=== PATIENT | female | born 1990 | race Caucasian/White ===

== ENCOUNTER 2021-08-26 14:29 | Emergency (ER) | payer BC, SELFPAY ==
[2021-08-26 14:36] VITALS: BP 150/86; PULSE 88; RESP 16; TEMP 36.8; O2SAT 98
--- NOTE | 2021-08-26 14:57 | ED.EAR ---
HPI - Ear Problem General Chief complaint: Ear Stated complaint: right ear pain Time Seen by Provider: 08/26/21 14:58 Source: patient Mode of arrival: ambulatory Limitations: no limitations History of Present Illness HPI Narrative: 31-year-old female presented for complaint of right ear pain, onset 1100 today. She states the pain is aching and constant, throbbing. She took Tylenol about 4 hours ago. She denies associated dizziness, tinnitus, nausea, vomiting, fevers or chills. No injury to the ear, states she was sitting in hinduism. Denies sinus congestion, pressure, cough, or recent illness. MD Complaint: ear pain Related Data Home Medications Medication Instructions Recorded Confirmed escitalopram oxalate [Lexapro] 20 mg PO DAILY 08/26/21 08/26/21 sertraline [Zoloft] 50 mg PO DAILY 08/26/21 08/26/21 Allergies Allergy/AdvReac Type Severity Reaction Status Date / Time ceftriaxone [From Rocephin] Allergy Hives Verified 08/26/21 14:59 Penicillins Allergy Hives Verified 08/26/21 14:59 Review of Systems Review of Systems: CONSTITUTIONAL: Denies malaise, chills, or fever. EYES: Denies visual changes, redness, or discharge. ENT: Denies rhinorrhea, congestion, sinus pain, and sore throat. Reports ear pain CARDIOVASCULAR: Denies chest pain, palpitations, or edema. RESPIRATORY: Denies cough or dyspnea. GASTROINTESTINAL: Denies abdominal pain, nausea, vomiting, diarrhea SKIN: Denies rash or itching. MUSCULOSKELETAL: Denies myalgia. NEUROLOGIC: Denies headache. All systems reviewed & are unremarkable except as noted in HPI and below [facility]LY [facility], [facility] Comments At time of signature, agree with nursing past medical, surgical, social and family history. There is no relevant family history pertinent to the presenting complaint Exam Narrative: GENERAL: Ill-appearing, appears in pain, no acute distress. HEAD: Normocephalic EYES: conjunctivae clear ENT: Nares clear. Mucous membranes moist. Right canal erythematous, TM erythematous with purulent drainage, tragal tenderness noted. left TM pearly powell with normal light reflex. Oropharynx not erythematous without lesions. no drooling, no hoarseness, no trismus, uvula midline. NECK: Supple. right anterior cervical lymphadenopathy CHEST: Clear to auscultation, breath sounds equal. No wheezing, rhonchi, rales, or stridor. No respiratory distress, speaks in full sentences. HEART: Regular rate and rhythm. No murmur heard. SKIN: Warm, dry, no rash. NEURO: Alert and oriented x3. PSYCH: Normal mood and affect Course Course Emergency Course: Patient is aware of diagnosis, understands and agrees to treatment plan. Anticipatory guidance given. Patient agrees to follow-up as directed and is aware of reasons to seek care at the emergency department. Portions of this record may have been created with voice recognition software Level of Care: Express Care Visit Vital Signs Vital signs: Vital Signs Temperature 98.2 F 08/26/21 14:36 Pulse Rate 88 08/26/21 14:36 Respiratory Rate 16 08/26/21 14:36 Blood Pressure 150/86 H 08/26/21 14:36 Pulse Oximetry 98 08/26/21 14:36 Temperature 98.2 F 08/26/21 14:36 Pulse Rate 88 08/26/21 14:36 Respiratory Rate 16 08/26/21 14:36 Blood Pressure 150/86 H 08/26/21 14:36 Pulse Oximetry 98 08/26/21 14:36 Reviewed Medical Decision Making MDM Narrative Medical decision making narrative: PCN and rocephin allergy, Rx doxy given for 10 days given the appearance of the right ear c/w severe infection. Patient is appropriate for outpatient treatment and follow-up. Differential Diagnosis Differential Diagnosis: Coronavirus, strep pharyngitis, allergic rhinitis, upper respiratory tract infection, sinusitis, rhinosinusitis, nasopharyngitis, viral pharyngitis, otitis media, otitis externa, eustachian tube dysfunction, foreign body, cerumen impaction. Vital Signs Vital Signs: Vital Signs Temperature 98.2 F 08/26/21 14:36 Pulse Rate 88
[2021-08-26 15:00] VITALS: BP 150/86; PULSE 88; RESP 16; TEMP 36.8; O2SAT 98
== END 2021-08-26 15:08 | disposition home or self-care (01) ==
PROVIDERS: Emergency Provider Nurse Practitioner Family; PCP Internal Medicine
DX: H66.001 Acute suppurative otitis media without spontaneous rupture of ear drum, right ear (principal)
CPT/HCPCS: 99213; G0463

== ENCOUNTER 2022-02-19 10:41 | Emergency (ER) | payer BC, SELFPAY ==
--- NOTE | 2022-02-19 10:44 | ED.URI ---
HPI - URI/Sore Throat General Chief Complaint: Upper Respiratory Infection Stated Complaint: left eye and sore throat Time Seen by Provider: 02/19/22 10:44 Source: patient and RN notes reviewed History of Present Illness HPI Narrative: patient is a 32-year-old female who presents to the Urgent Care with complaints of left eye redness and drainage. Patient states that she woke up with it this morning. Patient states she has also been having a sore throat for the last couple days. Patient denies of any fever, nausea or vomiting. Patient has not been anything [id number] for her symptoms. No other acute complaints. No acute distress noted. Patient aware of the plan of care. Some parts of this dictation were generated by voice recognition software and may contain typographical and/or grammatical inaccuracies. Related Data Home Medications Medication Instructions Recorded Confirmed No Home Medications 02/19/22 02/19/22 Allergies Allergy/AdvReac Type Severity Reaction Status Date / Time ceftriaxone [From Rocephin] Allergy Hives Verified 02/19/22 10:54 Penicillins Allergy Hives Verified 02/19/22 10:54 Review of Systems Review of Systems: CONSTITUTIONAL: Denies fever, chills, or sweats. EYES: reports the redness, discharge and itchiness to the left eye ENT: Denies rhinorrhea, congestion, Otalgia. Reports of sore throat CARDIOVASCULAR: Denies chest pain, palpitations, or edema. RESPIRATORY: Denies cough or dyspnea. GASTROINTESTINAL: Denies abdominal pain, nausea, vomiting, or diarrhea. GENITOURINARY: Denies dysuria or hematuria. SKIN: Denies rash or itching. MUSCULOSKELETAL: Denies back pain, joint pain, or myalgia. NEUROLOGIC: Denies headache, numbness, or weakness. All other systems reviewed are negative, except as documented in HPI. Exam Narrative: GENERAL: This is a well-nourished, well-developed patient, in no apparent distress. HEAD: normocephalic, atraumatic. EYES: PERRL. Sclera clear/white. Vision is grossly intact. External hordeolum to the left lower eyelid with mild erythema. Mildly injected left sclera/ conjunctiva. Notable matting to the left eye. EARS: External ears normal, auditory canals clear and without drainage, TMs normal without perforation. Hearing grossly intact. NOSE: External nose normal with no obvious nasal discharge, nares without redness, no rhinorrhea. THROAT: Mucous membranes moist, posterior pharynx clear. moderate postnasal drainage. NECK: Neck supple, non-tender without lymphadenopathy, masses or thyromegaly. CARDIOVASCULAR: Regular rate and rhythm without murmurs, gallops, or rubs. RESPIRATORY: Clear to auscultation. Breath sounds equal bilaterally. No wheezes, rales, or rhonchi. SKIN: warm, intact with no suspicious lesions or rash, good texture and turgor. NEURO: awake, alert, and oriented to person, place and time. There were no obvious focal neurologic abnormalities. EXTREMITIES: No clubbing, cyanosis, or edema. Course Course Level of Care: Express Care Visit Vital Signs Vital signs: Vital Signs Temperature 97.9 F 02/19/22 10:47 Pulse Rate 93 02/19/22 10:47 Respiratory Rate 20 02/19/22 10:47 Blood Pressure 140/86 02/19/22 10:47 Pulse Oximetry 99 02/19/22 10:47 Oxygen Delivery Room Air 02/19/22 10:47 Temperature 97.9 F 02/19/22 10:47 Pulse Rate 93 02/19/22 10:47 Respiratory Rate 20 02/19/22 10:47 Blood Pressure 140/86 02/19/22 10:47 Pulse Oximetry 99 02/19/22 10:47 Oxygen Delivery Room Air 02/19/22 10:47 Reviewed MDM - URI/Sore Throat MDM Narrative Medical decision making narrative: Reviewed lab results with the patient. She is aware that her strep swab was negative. Educated patient on culture and we will call within 72 hours if culture is positive, and antibiotics are necessary. Advised patient to continue the warm compress to the left eye and use the eyedrops as directed,wipe the applicator tip after each a
[2022-02-19 10:47] VITALS: BP 140/86; PULSE 93; RESP 20; TEMP 36.6; O2SAT 99
== END 2022-02-19 11:45 | disposition home or self-care (01) ==
PROVIDERS: Emergency Provider Nurse Practitioner Family
DX: H10.32 Unspecified acute conjunctivitis, left eye (principal); H00.015 Hordeolum externum left lower eyelid
CPT/HCPCS: 87081; 87880; 99213; G0463

== ENCOUNTER 2022-08-19 12:30 | Emergency (ER) | payer BC, SELFPAY ==
[2022-08-19 12:40] VITALS: BP 167/111; PULSE 99; RESP 20; TEMP 36.6; O2SAT 98
--- NOTE | 2022-08-19 12:48 | ED.SKABFB ---
HPI - Skin/Abscess/Foreign Bdy General Chief complaint: Skin/Abscess/Foreign Body Stated complaint: Rash Time Seen by Provider: 08/19/22 12:48 Source: patient and RN notes reviewed History of Present Illness HPI narrative: Patient is a 32-year-old female who presents to urgent care with complaints of an itchy rash to the right shoulder, bilateral arms, lower/upper back, groin. Patient states it started yesterday and she has been outside assuming it may be poison edith. Patient has not taken anything [id number] for her symptoms. No other acute complaints. No acute distress noted. Patient aware of the plan of care. Some parts of this dictation were generated by voice recognition software and may contain typographical and/or grammatical inaccuracies. Related Data Allergies Allergy/AdvReac Type Severity Reaction Status Date / Time ceftriaxone [From Rocephin] Allergy Hives Verified 02/19/22 10:54 Penicillins Allergy Hives Verified 02/19/22 10:54 Review of Systems Review of Systems: CONSTITUTIONAL: Denies fever, chills, or sweats. EYES: Denies visual changes, redness, or discharge. ENT: Denies rhinorrhea, congestion, sore throat, or otalgia. CARDIOVASCULAR: Denies chest pain, palpitations, or edema. RESPIRATORY: Denies cough or dyspnea. GASTROINTESTINAL: Denies abdominal pain, nausea, vomiting, or diarrhea. GENITOURINARY: Denies dysuria or hematuria. SKIN: Reports of an itchy rash to the right shoulder, bilateral arms, abdomen, groin and back MUSCULOSKELETAL: Denies back pain, joint pain, or myalgia. NEUROLOGIC: Denies headache, numbness, or weakness. All other systems reviewed are negative, except as documented in HPI. PMFSH Comments At the time of my signature, I reviewed and agree with the nursing past medical, surgical, social, and family history. There is no relevant family history pertinent to the patient complaint. Exam Narrative: GENERAL: This is a well-nourished, well-developed patient, tearful HEAD: normocephalic, atraumatic. EYES: PERRL. Sclera clear/white. Vision is grossly intact. EARS: External ears normal NOSE: External nose normal with no obvious nasal discharge, nares without redness, no rhinorrhea. THROAT: Mucous membranes moist NECK: Neck supple SKIN: Diffused papular erythema neck rhus dermatitis noted to bilateral arms, back, abdomen, right shoulder NEURO: awake, alert, and oriented to person, place and time. There were no obvious focal neurologic abnormalities. EXTREMITIES: No clubbing, cyanosis, or edema. Course Course Level of Care: Express Care Visit Vital Signs Vital signs: Vital Signs Temperature 97.9 F 08/19/22 12:40 Pulse Rate 99 08/19/22 12:40 Respiratory Rate 20 08/19/22 12:40 Blood Pressure 167/111 H 08/19/22 12:40 Pulse Oximetry 98 08/19/22 12:40 Oxygen Delivery Room Air 08/19/22 12:40 Temperature 97.9 F 08/19/22 12:40 Pulse Rate 99 08/19/22 12:40 Respiratory Rate 20 08/19/22 12:40 Blood Pressure 167/111 H 08/19/22 12:40 Pulse Oximetry 98 08/19/22 12:40 Oxygen Delivery Room Air 08/19/22 12:40 Reviewed- Patient is informed that they may have pre-hypertension or hypertension based on a blood pressure reading in the department. I recommend the patient call the primary care provider listed on their discharge instructions or a physician of their choice this week to arrange follow-up for further evaluation of possible pre-hypertension or hypertension. MDM - Skin/Abscess/Foreign Bdy MDM Narrative Medical decision making narrative: Advised patient to complete the steroid regimen as prescribed. Start the steroid tomorrow considering you been given a dose at the facility today. Use the prescription cream to the affected areas avoiding directly to the groin, around the eyes, or under arms. Would recommend also using an antihistamine such as Benadryl for itch relief. Be aware that any heat will exacerbate the itch such as a hot shower or
[2022-08-19] MEDS: predniSONE 20 MG TABLET 60 MG PO (13:12)
== END 2022-08-19 13:16 | disposition home or self-care (01) ==
PROVIDERS: Emergency Provider Nurse Practitioner Family; PCP Internal Medicine
DX: L23.7 Allergic contact dermatitis due to plants, except food (principal)
CPT/HCPCS: 99213; G0463; J7512

== ENCOUNTER 2023-02-23 11:37 | Emergency (ER) | payer BC, SELFPAY ==
[2023-02-23 11:46] VITALS: BP 141/100; PULSE 100; RESP 20; TEMP 36.9; O2SAT 95
--- NOTE | 2023-02-23 12:34 | ED.GENADULT ---
HPI - General Adult General Chief complaint: Upper Respiratory Infection Stated complaint: throat/ears Source: patient Mode of arrival: ambulatory Limitations: no limitations History of Present Illness HPI narrative: Patient presents for evaluation of sore throat and bilateral ear pain for last 3-4 days. No fever, chills, nausea, vomiting, diarrhea, cough, shortness of breath, tinnitus, hearing loss or drainage from the ears. She has not been taking any medication to assist with her symptoms. She does not smoke. A family member was recently diagnosed with an ear infection. Her daughter is being evaluated here for similar symptoms. Related Data Allergies Allergy/AdvReac Type Severity Reaction Status Date / Time ceftriaxone [From Rocephin] Allergy Hives Verified 02/19/22 10:54 Penicillins Allergy Hives Verified 02/19/22 10:54 Review of Systems Review of Systems: CONSTITUTIONAL: Denies fever, chills, or sweats. EYES: Denies visual changes, redness, or discharge. ENT: Reports bilateral ear pain and sore throat. Denies tinnitus, hearing loss, drainage from the ears CARDIOVASCULAR: Denies chest pain, palpitations, or edema. RESPIRATORY: Denies cough or dyspnea. GASTROINTESTINAL: Denies abdominal pain, nausea, vomiting, or diarrhea. GENITOURINARY: Denies dysuria or hematuria. SKIN: Denies rash or itching. MUSCULOSKELETAL: Denies back pain, joint pain, or myalgia. NEUROLOGIC: Denies headache, numbness, dizziness, or weakness. PSYCHIATRIC: Denies anxiety or depression. [facility] Past Medical History Medical History No pertinent past medical history Surgical History Surgical History No pertinent past surgical history Family History Family History Mother Family history non-contributory Social History Social History Smoking status: Never smoker Alcohol intake: current Alcohol use details: occasional Substance use: never Living arrangements: with family Gender identity (if verbalized by the patient): Female Spiritual care concerns: No Exam Narrative: GENERAL: Well-appearing, well-nourished, and in no acute distress. HEAD: Normocephalic, atraumatic. EYES: PERRLA and EOMI. ENT: Nares clear, no rhinorrhea or epistaxis. Mucous membranes moist. Oropharynx without tonsillar hypertrophy exudate or other lesions. Bilateral tympanic membranes are erythematous and bulging NECK: Supple. No adenopathy or masses. No carotid bruits or JVD CHEST: Clear to auscultation. No respiratory distress. No wheezes rales or rhonchi HEART: Regular rate and rhythm. No murmur heard. Normal peripheral pulses. ABDOMEN: Soft, nontender, nondistended, normal active bowel sounds. EXTREMITIES: Normal range of motion. No edema. SKIN: Warm, dry, no rash. NEURO: No focal deficits. Alert and oriented x3. PSYCH: Normal mood and affect. Course Course Emergency Course: This is a 33-year-old female who presented for evaluation of sick symptoms. COVID, influenza, strep were all negative. She has evidence of otitis media. Will treat with augmentin. She has a hx of allergies to rocephin and PCN but assured me that she has taken augmentin in the past and tolerated it without difficulty. Follow-up with primary care provider. Go to the ER for worsening symptoms. Patient in agreement plan care Level of Care: Express Care Visit Vital Signs Vital signs: Vital Signs Temperature 36.9 C 02/23/23 11:46 Pulse Rate 100 02/23/23 11:46 Respiratory Rate 20 02/23/23 11:46 Blood Pressure 141/100 H 02/23/23 11:46 Pulse Oximetry 95 02/23/23 11:46 Oxygen Delivery Room Air 02/23/23 11:46 Temperature 36.9 C 02/23/23 11:46 Pulse Rate 100 02/23/23 11:46 Respiratory Rate 20
== END 2023-02-23 12:57 | disposition home or self-care (01) ==
PROVIDERS: Emergency Provider Nurse Practitioner; PCP Internal Medicine
DX: J02.9 Acute pharyngitis, unspecified (principal); Z20.822 Contact with and (suspected) exposure to COVID-19
CPT/HCPCS: 87081; 87426; 87804; 87880; 99213; C9803; G0463

== ENCOUNTER 2023-07-28 15:32 | Emergency (ER) | payer BC, SELFPAY ==
[2023-07-28 15:44] VITALS: BP 156/96; PULSE 79; RESP 20; TEMP 36.6; O2SAT 96
--- NOTE | 2023-07-28 15:48 | ED.URI ---
HPI - URI/Sore Throat General Chief Complaint: Upper Respiratory Infection Stated Complaint: Chest Pain/Left Ear Time Seen by Provider: 07/28/23 15:51 Source: patient, RN notes reviewed and old records reviewed Mode of arrival: ambulatory Limitations: no limitations History of Present Illness HPI Narrative: 33 year old female presents to [facility] care with complaints of cough and congestion since Friday with some chest and upper back pain with cough, denies any shortness of breath or any fevers, Patient reports that her throat is sore, states some left ear discomfort, and runny nose. Patient reports that she has been taking cough drops for her symptoms. Patient reports that she doesn't known of any ill contacts but works in a restaurant. MD elicited complaint: cough and sore throat Pertinent past history: seasonal allergies and other (ear infection,) Onset (ago): day(s) (day 3) Severity: moderate Description of mucous: clear Able to tolerate fluids by mouth: Yes Treatments prior to arrival: other (cough drops) Related Data Allergies Allergy/AdvReac Type Severity Reaction Status Date / Time ceftriaxone [From Rocephin] Allergy Hives Verified 02/19/22 10:54 Penicillins Allergy Hives Verified 02/19/22 10:54 Review of Systems Review of Systems: CONSTITUTIONAL: Reports malaise,no chills, sweats, or fever. EYES: Denies visual changes, redness, or discharge. ENT: Reports rhinorrhea, congestion, no sinus pain, no otalgia and positive for sore throat. CARDIOVASCULAR: Denies chest pain, palpitations, or edema. RESPIRATORY: Reports cough.? Denies dyspnea.states some chest and upper back pain with cough. GASTROINTESTINAL: Denies abdominal pain, nausea, vomiting, diarrhea SKIN: Denies rash or itching. MUSCULOSKELETAL: Denies myalgia. NEUROLOGIC: Denies headache. All systems reviewed & are unremarkable except as noted in HPI and below PMFSH Past Medical History Medical History No pertinent past medical history Surgical History Surgical History No pertinent past surgical history Family History Family History Mother Family history non-contributory Social History Social History Smoking status: Former smoker Alcohol intake: current Alcohol use details: occasional Substance use: current Substance use type: marijuana Last use: occasional Living arrangements: with family Gender identity (if verbalized by the patient): Female Spiritual care concerns: No Comments At time of signature, agree with nursing past medical, surgical, social and family history. There is no relevant family history pertinent to the presenting complaint Exam Narrative: GENERAL: Well-appearing, well-nourished, and in no acute distress. HEAD: Normocephalic EYES: PERRLA, conjunctivae clear ENT: Nares clear, turbinates edematous and erythematous, clear discharge. Mucous membranes moist. TM pearly powell with dull light reflex bilaterally; no tragal tenderness. Oropharynx erythematous without lesions. Tonsils red not enlarged and without exudate, no drooling, no hoarseness, no trismus, uvula midline.post nasal drainage NECK: Supple. No lymphadenopathy CHEST: Clear to auscultation, breath sounds equal. No wheezing, rhonchi, rales, or stridor. No respiratory distress, speaks in full sentences.cough noted SAO2 96% on room air HEART: Regular rate and rhythm. No murmur heard. SKIN: Warm, dry, no rash. NEURO: Alert and oriented x3. PSYCH: Normal mood and affect Course Course Emergency Course: Patient is aware of diagnosis, understands and agrees to treatment plan.? Anticipatory guidance given.? Patient agrees to follow-up as directed and is aware of reasons to seek care at the emergency departme
[2023-07-28 15:52] VITALS: BP 156/96; PULSE 79; RESP 20; TEMP 36.6; O2SAT 96
== END 2023-07-28 16:31 | disposition home or self-care (01) ==
PROVIDERS: Emergency Provider Registered Nurse; PCP Internal Medicine
DX: J06.9 Acute upper respiratory infection, unspecified (principal); Z87.891 Personal history of nicotine dependence
CPT/HCPCS: 87081; 87880; 99213; G0463

== ENCOUNTER 2024-06-27 15:39 | Emergency (ER) | payer SELFPAY ==
--- OUTSIDE RECORDS SUMMARY | 2024-06-27 15:41 | XMS_ITS | Clinical Summary ---
Author Organization [facility] Address [address] [place] [address] Care Team Providers Care Ambulance Officer Name Role Phone Luke Dasilva MD Primary Care Provider [phone] Gayle Pascual MD Unavailable [phone] Allergies Active Allergy Reactions Criticality Noted Date Comments Ceftriaxone Hives Medium Reaction: HIVES TOLERATED ZOSYN WITHOUT ANY ISSUES 04-12 Penicillins Medications escitalopram (LEXAPRO) 20 mg tabletIndication s:Anxiety with Depression Take 25 mg by mouth daily Active oxyCODONE-acetam inophen (PERCOCET) 5-325 mg per tabletIndication s:Pain Take 1 tablet by mouth every 4 (four) hours as needed for pain 10 tablet 04/09/2023 Active Active Problems Problem Noted Date Diagnosed Date Crushing injury of left foot 09/04/2023 Acute cholecystitis 04/08/2023 Uvulitis 02/25/2023 Mucositis oral 02/25/2023 History of hypertension 2021 Overview (11/28/2022): Last Assessment & Plan: Normotensive today Having headaches that Tylenol often alleviates. Denies other symptoms of preeclampsia. Began magnesium oxide. Recommendations: I again reviewed preeclampsia warnings in detail and when when she should seek evaluation. Continue magnesium oxide provided for aid in prevention of headaches, discussed needs to be daily use. GDM (gestational diabetes mellitus) 12/05/2020 Overview (11/28/2022): 1 hr GCT: 167 3 hr GTT: 97, 184, 160, 122 Last Assessment & Plan: Glucose log today shows hyperglycemia with all fasting values, and most post prandial values. Continues dietary changes. Currently doing testing twice weekly with primary OB at [facility]. Reports reassuring testing. Began care with us at 37w5d for GDM, today is first visit with glucose logs, delivery planned for Friday, 01/22. Willing to do insulin for these last few days before delivery. MFM plan: Encouraged to check glucose 4x daily, fasting and one hour after each meal Close contact with our CDE, on at least a weekly basis Discussed there is still time to have positive impact on fetus with starting insulin, reviewed risk of hypoglycemia given her hyperglycemia. Insulin: start Levemir 16 units BID. Reviewed treatment of hypoglycemia and importance of eating consistently with insulin administration. Follow up with MFM CDE on Friday to review logs in anticipation that adjustments will need to be made. Recommend twice daily kick counts--explained. Seek prompt evaluation with decreased movement. Twice weekly NST from 34 weeks until delivery; completing with primary OB. Serial Ultrasound assessment of growth every 3-4 weeks is recommended, with a reassessment between 37-38 weeks for mode of delivery planning. Recommend initiation of delivery at 39 weeks Encourage 2 hour GTT at 4 weeks PP, to be reviewed at 6 week PP exam recommended Supervision of high-risk of jim craft 12/05/2020 Overview (11/28/2022): A+, Negative, Immune, RPR-NR, HIV-NR, Hbsag-NR H/h/p: 12.7 ; 37.0; 339 GC/ Chlamydia: Negative MSAFP: Negative Last Assessment & Plan: Experiencing irregular contractions today. Recommendations: Labor warnings reviewed. The Covid vaccine ([employer] or [employer]) was recommended, discussing the safety in and known higher risks of severe complications of Covid infection in . It was stressed that ACOG and SMFM recommend vaccination for all women who are , if not previously vaccinated. Impetigo 07/02/2018 Immunizations Immunization Administration Dates Next Due MMR 05/23/2014 Tdap 05/23/2014 Surgical History Surgery Date Site/Laterality Comments WISDOM TOOTH EXTRACTION TONSILLECTOMY CERVICAL BIOPSY W/ LOOP ELECTRODE EXCISION Medical History Medical History Date Comments Depression Anxiety Social History Tobacco Use Types Packs/Day Years Used Date Smoking Tobacco: Former Smokeless Tobacco: Never Tobacco Cessation:Counseling Given: Not Answered Alcohol Use Standard Drinks/Week Comments Not Currently 0 (1 standard drink = 0.6 oz pur e alcohol) [facility] Utilities Answer Date Recorded In the past 12 months has th e [employer], gas, oil, or water [employer] threatened to shut off services in your home? No 04/08/2023 Social Connection and Isolat ion Panel [NHANES] Answer Date Recorded In a typical week, how many times do you talk on the phone with family, friends, or neighbors? More than three times a week 04/08/2023 How often do you get togethe r with friends or relatives? More than three times a week 04/08/2023 How often do you attend chur ch or jainism services? Never 04/08/2023 Do you belong to any clubs o r organizations such as congregational groups, unions, fraternal or athletic groups, or school groups? No 04/08/2023 How often do you attend meet ings of the clubs or organizations you belong to? Never 04/08/2023 Are you , , di vorced, , never , or living with a partner? 04/08/2023 Overall Financial Resource Strain (CARDIA) Answe r Date Recorded How hard is it for you to pa y for the very basics like food, housing, medical care, and heating? Not hard at all 04/08/2023 Hunger Vital Sign Answer Date Recorded Within the past 12 months, y ou worried that your food would run out before you got the money to buy more. Never true 04/08/20 23 Within the past 12 months, t he food you bought just didn't last and you didn't have money to get more. Never true 04/08/2023 PRAPARE - Transportation Answer Date Re corded In the past 12 months, has l ack of transportation kept you from medical appointments or from getting medications? No 03/21 In the past 12 months, has l ack of transportation kept you from meetings, work, or from getting things needed for daily living? No 04/08/2023 Housing Stability Vital Sign Answer Mina e Recorded In the last 12 months, was t here a time when you were not able to pay the mortgage or rent on time? No 04/08/2023 In the last 12 months, how many places have you lived? 2 04/08/2023 In the last 12 months, was t here a time when you did not have a steady place to sleep or slept in a group home (including now)? No 04/08/2023 Personal Safety Answer Date Recorded Have you ever been in or are you currently in a harmful physical or emotional relationship or is someone making you feel afraid or unsafe? Denies 09/04/2023 Comments No Sex and Gender Information Value Date Recorded Sex Assigned at Not on file Legal Sex Female 7:27 PM [employer] Gender Identity Not on file Sexual Orientation Not on file Obstetrics History Para Term AB IAB SAB Ectopic Multiple Livin g Live Births 2 2 1 0 1 1 Date Outcome GA Total Labor Labor/2nd/3rd Weight Sex Type Anes PTL Michelle A1 A5 Name Clin 2014 Para Vag-S pont 2020 Term 39w 4d 8h 39m 8h 11m/0h 23m/0h 05m 3.208 kg (7 lb 1.2 oz) F Vag-S pont Epidur al N Livin g 8 9 CAREY ,GIRL MESERET Hardela n, Austin whiteside MD Complications:None Delivery Location:[facility] Last Filed Vital Signs Vital Sign Reading Time Taken Comments Blood Pressure 136/89 09/04/2023 5:06 PM CDT Pulse 109 09/04/2023 5:06 PM CDT Temperature 36.8 C (98.2 F) 09/04/2023 5:06 PM CDT Respiratory Rate 18 09/04/2023 5:06 PM CDT Oxygen Saturation 96% 09/04/2023 5:06 PM CDT Inhaled Oxygen Concentration - - Weight 82.6 kg (182 lb) 09/04/2023 5:06 PM CDT Height 160 cm (5' 3 ) 09/04/2023 5:06 PM CDT Body Mass Index 32.24 09/04/2023 5:06 PM CDT Plan of Treatment Health Maintenance Due Date Last Done Comments Cervical Cancer Screening 1990 Depression Screening 1990 Hepatitis C Screening 1990 Varicella Vaccines (1 of 2 - 13+ 2-dose series) 2003 Hepatitis B Screening 01/11/2008 Regular Well Visit/Exam 18-64 01/11/2008 Influenza Vaccine (#1) 2023 DTaP/Tdap/Td Vaccine (2 - Td or Tdap) 05/23/2024 05/23/2014 HPV Vaccines Aged Out No longer eligi ble based on patient's age to complete this topic Pneumococcal vaccine <65 Aged Out No longer eligible based on patient's age to complete this topic Insurance [place] [id number] [facility] Advance Directives For more information, please contact: [phone] * Full Code (Latest Code Status on File) Date Activated Date Inactivated Comments 04/08/2023 1:45 PM 04/10/2023 1:26 PM * Full Code Date Activated Date Inactivated Comments 01/24/2021 5:26 AM 01/26/2021 1:29 AM * Full Code Date Activated Date Inactivated Comments 01/22/2021 6:35 AM 01/24/2021 5:25 AM Full CPR in case of cardiopulmonary arrest Care Teams Ambulance Officer Relationship Specialty Start Date End Date Luke Dasilva MD PCP - General 06/09/18 Gayle Pascual MD [address] [place] [address] Insolvency Consultant Obstetrics and Gynecology 01/25/21
--- OUTSIDE RECORDS SUMMARY | 2024-06-27 15:41 | XMS_ITS | Clinical Summary ---
Author Organization [facility] Address [address] [place] [address] Care Team Providers Care Ticket Taker Ferryboat Name Role Phone Unavailable Primary Care Provider Unavailabl e Source Comments [facility],non-owned Affiliates and Associated Physician Practices is amultiple site organization consisting of ambulatory clinics and hospital sitesin [place], [place], [place] and [place]. This disclosure is being madepursuant to the Care Everywhere program and may not contain all information available regarding this patient. Last updated 18.[facility] Allergies Active Allergy Reactions Criticality Noted Date Comments Penicillins Urticaria Medium 12/05/2020 Ceftriaxone Urticaria,Unknown Medium 12/05/2020 Medications * Be aware that medications may not be up to date on this document. Alwaysverify current medications with the patient. Medication Sig Dispensed Refills Start Date End Date Status escitalopram (LEXAPRO) 20 MG tablet Take 20 mg by mouth once daily Active Vit-Fe Fumarate-FA ( VITAMIN) 28-0.8 MG tablet Take 1 tablet by mouth once daily Active insulin detemir (LEVEMIR) pen Inject 16 (sixteen) Units subcutaneously 2 times daily Take 16 units in morning, 16 in evening. Space doses by 12 hrs. 6 mL 01/17/2021 Active Insulin Pen Needle 32G X 4 MM MISC Use 1 syringe 2 times daily 100 Each 01/17/2021 Active Glucagon, rDNA, (GLUCAGON EMERGENCY) 1 MG KIT Inject 1 (one) mg subcutaneously as needed 1 Each 1 01/17/2021 Active Alcohol Swabs (ALCOHOL WIPES) 70 % Use 1 Each as directed 100 Each 1 01/17/2021 Active blood glucose (ONETOUCH VERIO) test strip Use 1 (one) strip 4 times daily 100 strip 1 01/17/2021 Active OneTouch Delica Lancets 33G [facility] Use 1 Each 4 times daily 100 Each 1 01/17/2021 Active Active Problems Problem Noted Date Diagnosed Date History of hypertension 2021 Assessment & Plan (01/17/2021 11:32 AM CDT): Normotensive today Having headaches that Tylenol often alleviates. Denies other symptoms of preeclampsia. Began magnesium oxide. Recommendations: I again reviewed preeclampsia warnings in detail and when when she should seek evaluation. Continue magnesium oxide provided for aid in prevention of headaches, discussed needs to be daily use. Assessment & Plan (2021 3:48 PM CDT): Normotensive today and appropriate blood pressure values on record. Having headaches that Tylenol often alleviates. Denies other symptoms of preeclampsia with negative urine protein. Recommendations: Reviewed preeclampsia warnings in detail, handout provided, discussed when she should seek evaluation. Magnesium oxide provided for aid in prevention of headaches, discussed needs to be daily use. GDM (gestational diabetes mellitus) 12/05/2020 Overview (12/05/2020): 1 hr GCT: 167 3 hr GTT: 97, 184, 160, 122 Assessment & Plan (01/17/2021 11:30 AM CDT): Glucose log today shows hyperglycemia with all fasting values, and most post prandial values. Continues dietary changes. Currently doing testing twice weekly with primary OB at [facility]. Reports reassuring testing. Began care with us at 37w5d for GDM, today is first visit with glucose logs, delivery planned for Friday, 01/22. Willing to do insulin for these last few days before delivery. [facility] plan: Encouraged to check glucose 4x daily, [...] consistently with insulin administration. Follow up with M CDE on Friday to review logs in [...] reviewed at 6 week PP exam recommended Assessment & Plan (2021 3:48 PM CDT): GDM I counseled Pearl Becerra regarding the adverse outcomes associated with inadequately controlled diabetes in . These complications include overgrowth with the associated risk of labor and shoulder dystocia, delivery, preeclampsia, hypoglycemia, stillbirth, and her child's risk of metabolic disease in later life secondary to programming of adult disease. Adequate treatment of the disease will minimize these risks. We discussed the dramatic increase in insulin resistance that occurs in the second half of and I outlined a plan for ongoing management. We reviewed the target glucose ranges to minimize excessive growth and optimize outcomes. These are: Fasting 60-90 mg/dl; preprandial 60-105 mg/dl; and 1-hour postprandial < 130 mg/dl. Her dose was and will be: AM PM HS A) Antepartum testing. Recommend daily kick counts Twice weekly NST from 34 weeks until delivery. Serial Ultrasound assessment of growth every 3-4 weeks is recommended, with a reassessment between 37-38 weeks for mode of delivery planning. B.) Timing of Delivery. If spontaneous delivery has not occurred by 39 weeks gestation, delivery may be planned between 39-40 weeks. If dating is uncertain, an amniocentesis for Lung Maturity may be performed prior to scheduled delivery. If complications, such as preeclampsia, macrosomia or poor glucose control develop, then delivery plans may need to be revised. C) Route of delivery. Vaginal delivery may be anticipated unless the fetus is excessively large or there is an abnormal presentation. Diabetes is associated with about a six-fold risk for shoulder dystocia. Operative vaginal deliveries should be approached with caution. We also discussed the limitations of ultrasound for estimating weight at term, with estimated weights deviating by up to 1 lb in either direction from birthweights. I advised Pearl that the [employer] recommends delivery for fetuses with estimated weight of 4500 grams or greater in diabetic mothers. D) Glucose control in labor. During labor, capillary glucose values should be checked every 1-2 hours (depending on their stability). Maintenance fluids with 5% dextrose are infused to prevent starvation ketosis. If the glucose values exceed 110 mg/dl, an insulin infusion is recommended. E) Long-term diabetes surveillance. The risk of Pearl Becerra developing diabetes outside of over the next five years may be as high as 50%. I recommend that she have a fasting plasma glucose or 2hr GTT at 4 weeks and discussion of the results at her 6 week visit. If her testing is normal, annual glucose screening by her primary care physician is advised. Assessment: not currently checking glucoses. Reports making a lot of dietary changes. Currently doing testing twice weekly with primary OB at [facility]. Began care with us at 37w5d for GDM, today is her first visit. MFM plan: Encouraged to check glucose 4x daily, fasting and one hour after each meal Close contact with our CDE, on at least a weekly basis Discussed there is still time to have positive impact on fetus with engaging now in checking her glucose values. Recommend twice daily kick counts--explained. Seek prompt evaluation with decreased movement. Twice weekly NST from 34 weeks until delivery; completing with primary OB.. Serial Ultrasound assessment of growth every 3-4 weeks is recommended, with a reassessment between 37-38 weeks for mode of delivery planning. Recommend initiation of delivery at 39 weeks Encourage 2 hour GTT at 4 weeks PP, to be reviewed at 6 week PP exam recommended Return in one week, contact us sooner if having elevations to begin medication management before next week. Supervision of high-risk of jim pruitt igravida 12/05/2020 Overview (12/05/2020): A+, Negative, Immune, RPR-NR, HIV-NR, Hbsag-NR H/h/p: 12.7 ; 37.0; 339 GC/ Chlamydia: Negative MSAFP: Negative Assessment & Plan (2021 2:37 PM CDT): Experiencing irregular contractions today. Recommendations: Labor warnings reviewed. The Covid vaccine (Pfizer or Moderna mRNA vaccines) was recommended, discussing the safety in and known higher risks of severe complications of Covid infection in . It was stressed that ACOG and SMFM recommend vaccination for all women who are , if not previously vaccinated. Family History Medical History Relation Name Comments Diabetes; unknown type Father Diabetes; unknown type Maternal Grandfather Diabetes; unknown type Paternal Grandfather Diabetes; unknown type Paternal Grandmother Relation Name Status Comments Father Alive Maternal Grandfather Mother Alive Paternal Grandfather Paternal Grandmother Sister Alive Social History Tobacco Use Types Packs/Day Years Used Date Smoking Tobacco: Former Cigarettes 2019 Smokeless Tobacco: Never Alcohol Use Standard Drinks/Week Comments Not Currently 0 (1 standard drink = 0.6 oz pur e alcohol) Sex and Gender Information Value Date Recorded Sex Assigned at Not on file Gender Identity Not on file Sexual Orientation Not on file Last Filed Vital Signs Vital Sign Reading Time Taken Comments Blood Pressure 108/72 01/17/2021 10:17 AM CDT Pulse 73 01/17/2021 10:17 AM CDT Temperature - - Respiratory Rate - - Oxygen Saturation - - Inhaled Oxygen Concentration - - Weight 97.3 kg (214 lb 9.6 oz) 01/17/2021 10:17 AM CDT Height - - Body Mass Index - - Plan of Treatment Health Maintenance Due Date Last Done Comments PAP SMEAR 1990 HIV SCREENING 2005 HEPATITIS C SCREENING 01/06/2008 DTAP/TDAP/TD VACCINES (1 - Tdap) 2009 HEPATITIS B VACCINE (1 of 3 - 19+ 3-dose series) 2009 COVID-19 VACCINE ( - 2023-2 5 season) 2023 INFLUENZA VACCINE (#1) 2023 DEPRESSION SCREENING 04/21/2024 ZOSTER VACCINE (1 of 2) 01/11/2040 HIB VACCINE Aged Out No longer eligi ble based on patient's age to complete this topic HPV VACCINE Aged Out No longer eligi ble based on patient's age to complete this topic MENINGOCOCCAL (Group B) VACCINE Aged Out No longer eligible based on patient's age to complete this topic MENINGOCOCCAL VACCINE Aged Out No daniela shadia eligible based on patient's age to complete this topic PNEUMOCOCCAL VACCINE Aged Out No long er eligible based on patient's age to complete this topic
--- OUTSIDE RECORDS SUMMARY | 2024-06-27 15:41 | XMS_ITS | Referral Summary ---
Author Organization [facility] Address [address] [place] [address] Care Team Providers Care Reformatory Attendant Name Role Phone Unavailable Primary Care Provider Unavailabl e Source Comments [facility],non-owned Affiliates and Associated Physician Practices is amultiple site organization consisting of ambulatory clinics and hospital sitesin [place], [place], [place] and [place]. This disclosure is being madepursuant to the Care Everywhere program and may not contain all information available regarding this patient. Last updated 18.[facility] Allergies Active Allergy Reactions Criticality Noted Date [...] 1 01/17/2021 Active OneTouch Delica Lancets 33G [facility] Use 1 Each 4 times daily 100 [...] testing twice weekly with primary OB at [facility]. Reports reassuring testing. Began care with us at 37w5d for GDM, today is first visit with glucose logs, delivery planned for Friday, 01/22. Willing to do insulin for these last few days before delivery. [facility] plan: Encouraged to check glucose 4x [...] from birthweights. I advised Pearl that the [employer] recommends delivery [...] testing twice weekly with primary OB at [facility]. Began care with us at 37w5d for [...] who are , if not previously vaccinated. Social History Tobacco Use Types Packs/Day Years [...] Mass Index - - Plan of Treatment Not on file
--- OUTSIDE RECORDS SUMMARY | 2024-06-27 15:41 | XMS_ITS | Patient Health Summary ---
Author Organization [facility] Address [address] [place] [address] Care Team Providers Care Metal Tile Setter Name Role Phone Unavailable Primary Care Provider Unavailabl e Note from [facility],non-owned Affiliates and Associated Physician Practices is amultiple site organization consisting of ambulatory clinics and hospital sitesin [place], [place], [place] and [place]. This disclosure is being madepursuant to the Care Everywhere program and may not contain all information available regarding this patient. Last updated 18.[facility] Allergies * Penicillins(Urticaria) -Medium Criticality * Ceftriaxone(Urticaria,Unknown) -Medium Criticality Medications * Be aware that medications may not be up to date on this document. Alwaysverify current medications with the patient. * escitalopram (LEXAPRO) 20 MG tablet Take 20 mg by mouth once daily * Vit-Fe Fumarate-FA ( VITAMIN) 28-0.8 MG tablet Take 1 tablet by mouth once daily * insulin detemir (LEVEMIR) pen(Started 01/17/2021) Inject 16 (sixteen) Units subcutaneously 2 times daily Take 16 units in morning, 16 in evening. Space doses by 12 hrs. * Insulin Pen Needle 32G X 4 MM MISC(Started 01/17/2021) Use 1 syringe 2 times daily * Glucagon, rDNA, (GLUCAGON EMERGENCY) 1 MG KIT(Started 01/17/2021) Inject 1 (one) mg subcutaneously as needed 1 refill by 01/17/2022 * Alcohol Swabs (ALCOHOL WIPES) 70 %(Started 01/17/2021) Use 1 Each as directed 1 refill by 01/17/2022 * blood glucose (ONETOUCH VERIO) test strip(Started 01/17/2021) Use 1 (one) strip 4 times daily 1 refill by 01/17/2022 * OneTouch Delica Lancets 33G MIS(Started 01/17/2021) Use 1 Each 4 times daily 1 refill by 01/17/2022 Active Problems Problem Noted Date Diagnosed Date History of hypertension 2021 GDM (gestational diabetes mellitus) 12/05/2020 Supervision of high-risk of young mult igravida 12/05/2020 Social History Tobacco Use Types Packs/Day Years Used Date Smoking Tobacco: Former Cigarettes 2 2019 Smokeless Tobacco: Never Alcohol Use Standard [...] - - Body Mass Index - - Procedures * SONOGRAM - COMPLETE(Performed 2021) Performed for Supervision of high-risk of young multigravida (HCC), Gestational diabetes mellitus (GDM) in third trimester, gestational diabetes method of control unspecified (HCC) Results * SONOGRAM - COMPLETE (2021 8:18 AM CDT) Anatomical Region Laterality Modality Other 2021 8:18 AM CDT Narrative 2021 2:01 PM CDT [facility] PHONE: FAX: Pat. Name: MESERET CAREY Pat. No: [id number] Study Date: 2021 8:18am , Age: 09 1990, 31 Pregnancies: 2, Para 1 Height: 63 in Weight: 218 lb LMP: 04/21/2020 GA by LMP: 37w5d GA by US: 36w0d LAMAR: 02/07/2021 GA Selected: 38w2d (Outside Scan) LAMAR: 01/22/2021 Referring MD: Gayle Pascual MD Creative Designer: Kayleen Arreaga, RDMS, RDCS CPT4: 44114,82135 BMI: 38.61 Hist/Ind: GDM MEASUREMENTS & AGE GROWTH EVALUATION Measurement GA Range Srce %for GA Ratios ----- ---- ------- BPD 8.7 cm 35w0d (35x8i-28l3m) Hadl BPD 4% FL/BPD 0.84 (0.71 - 0.87) HC 31.4 cm 35w2d (29n0f-40e6v) Hadl HC <01 FL/AC 0.23 (0.20 - 0.24) AC 32.1 cm 36w0d (75y2j-43o5n) Hadl AC 12% HC/AC 0.98 (0.90 - 1.09) FL 7.3 cm 37w4d (14d2s-96e0u) Hadl FL 35% CI 0.78 (0.70 - 0.86) HL 6.2 cm 35w6d (42f5x-14y8a) Edwin HL 9% GA for sonogram 36w0d (02u1j-48q4a) Weight Estimate: based on (HL,BPD,HC,AC,FL) Avg Weight: 2881 gm (2461-3302gm) Had : 6lbs, 5oz Normal: 3287 gm (2465-4109gm) Had Wt% 17% for 38w2d Heart Rate: 155 bpm Amniotic Fluid Index: 15.5cm (07.3-23.6) Q1: 4.3cm Q2: 3.0cm Q3: 1.6cm Q4: 6.5cm Biophysical Profile: 11/26 Breathin Tone: 2 Movement: 2 AFV: 2 EVAL, PLACENTA Presentation: cephalic Umbilical Cord: 3 Vessels Placenta: anterior Heart Rate: 155 bpm Amniotic Fluid Volume: normal Anatomy!Normal!Abnormal!Suboptimal!Prev. Seen!Comments Cranium ! ! ! x ! ! Mdl (CSP/Thal! ! ! x ! ! Ventricles ! ! ! x ! ! Choroid Plexu! ! ! x ! ! Cerebellum ! ! ! x ! ! Cerebellar Ve! ! ! x ! ! Cisterna M. ! ! ! x ! ! Orbits ! x ! ! ! ! Profile ! ! ! x ! ! Nasal Bone ! x ! ! ! ! Lip ! ! ! x ! ! Maxilla ! x ! ! ! ! Mandible ! ! ! x ! ! Neck ! ! ! x ! ! Spine ! ! ! x ! ! Lungs ! x ! ! ! ! 4 Chamber Hea! x ! ! ! ! LVOT ! ! ! x ! ! RVOT ! ! ! x ! ! 3 Vessel View! ! ! x ! ! 3 Vessel Trac! ! ! x ! ! Cross-over ! ! ! x ! ! Ductal Arch ! ! ! x ! ! Aortic Arch ! ! ! x ! ! Caval View ! ! ! x ! ! Situs ! x ! ! ! ! Diaphragm ! x ! ! ! ! Stomach ! x ! ! ! ! Liver ! x ! ! ! ! Bowel ! x ! ! ! ! Kidneys ! x ! ! ! ! Bladder ! x ! ! ! ! 3 Vessel Cord! x ! ! ! ! Cord In! ! ! x ! ! Upper Extremi! ! ! x ! ! Hands ! x ! ! ! ! Lower Extremi! ! ! x ! ! Feet ! ! ! x ! ! External Bren! ! ! ! !Female appearing Placental Cor! ! ! x ! ! CLINICAL SUMMARY Study Number: 1 A detailed anatomical screen was performed. The exam was technically fair due to gestational age. A single fetus is identified in cephalic presentation. The measurements today are consistent with less than expected growth. The LAMAR selected is based on LMP and prior ultrasound ( confirmed ). IMPRESSION: Single, live IUP at 38w2d size less than expected Reduced HC without overt microcephaly normal amniotic fluid No major malformations are seen, within the limitations of the exam Incomplete survey Reassuring biophysical profile Ultrasound does not allow detection of all structural or chromosomal abnormalities. ultrasound is limited in the ability to detect or exclude small, cardiac, septal defects. RECOMMEND: testing as indicated Thank you for allowing us the opportunity to care for your patient. Cecilia Vega MD <Electronic Signature> 2021 02:01pm Gayle Pascual MD [facility] ORDERABLES
--- OUTSIDE RECORDS SUMMARY | 2024-06-27 15:41 | XMS_ITS | Referral Summary ---
Author Organization [facility] Address [address] [place] [address] Care Team Providers Care Energy Infrastructure Engineer Name Role Phone Luke Dasilva MD Primary Care Provider [phone] Gayle Pascual MD Unavailable [phone] Allergies Active Allergy Reactions Criticality Noted Date [...] testing twice weekly with primary OB at [facility]. Reports reassuring testing. Began care with [...] Recommendations: Labor warnings reviewed. The Covid vaccine ([employer] or [employer]) was recommended, discussing the safety in and known higher risks of severe complications of Covid infection in . It was stressed that ACOG and SMFM recommend vaccination for all women who are , if not previously vaccinated. Impetigo 07/02/2018 Immunizations Immunization Administration Dates Next Due MMR 05/23/2014 Tdap 05/23/2014 Social History Tobacco Use Types Packs/Day Years Used Date Smoking Tobacco: Former Smokeless Tobacco: Never Tobacco Cessation:Counseling Given: Not Answered Alcohol Use Standard Drinks/Week Comments Not Currently 0 (1 standard drink = 0.6 oz pur e alcohol) [facility] Utilities Answer Date Recorded In the past 12 months has th e electric, gas, oil, or water company threatened to shut off services in your [...] often do you attend chur ch or yazidism services? Never 04/08/2023 Do you belong to any clubs o r organizations such as yazidism groups, unions, fraternal or athletic groups, or [...] place to sleep or slept in a long term (including now)? No 04/08/2023 Personal Safety Answer Date Recorded Have you ever been in or are you currently in a harmful physical or emotional relationship or is someone making you feel afraid or unsafe? 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 Gender Identity Not on file Sexual Orientation [...] 09/04/2023 5:06 PM CDT Plan of Treatment Not on file Insurance [facility] Advance Directives For more information, please contact: [phone] * Full Code (Latest Code Status on File) Date Activated Date Inactivated Comments 04/08/2023 1:45 PM 04/10/2023 1:26 PM * Full Code Date Activated Date Inactivated Comments 01/24/2021 5:26 AM 01/26/2021 1:29 AM * Full Code Date Activated Date Inactivated Comments 01/22/2021 6:35 AM 01/24/2021 5:25 AM Full CPR in case of cardiopulmonary arrest Care Teams Energy Infrastructure Engineer Relationship Specialty Start Date End Date Luke Dasilva MD PCP - General 06/09/18 Gayle Pascual MD [address] [place] [address] Fashion Director Party Plan Sales Obstetrics and Gynecology 01/25/21
[2024-06-27 15:44] VITALS: BP 135/85; PULSE 121; RESP 20; TEMP 37.2; O2SAT 98
[2024-06-27 16:06] LABS: EDCOVIDSCREEN Negative (Negative); EDINFLUASCREEN Positive (Negative); EDINFLUBSCREEN Negative (Negative); EDSTREPNEGPOS1 Negative (Negative)
--- NOTE | 2024-06-27 16:08 | ED_ITS ---
HPI - General Adult General Chief complaint: Upper Respiratory Infection Stated complaint: Throat/chest/back and ear pain Source: patient Mode of arrival: ambulatory Limitations: no limitations History of Present Illness HPI narrative: Patient presents for evaluation of sick symptoms for last 2 days. Symptoms include fever, chills, sore throat, bilateral ear pain, sinus congestion, nasal drainage, body aches, cough, pleuritic chest pain and diarrhea. She denies any nausea or vomiting. No recent sick contacts to her knowledge. She tried taking Tylenol for symptoms. She does not smoke. Related Data Allergies Allergy/AdvReac Type Severity Reaction Status Date / Time ceftriaxone (From Rocephin) Allergy Hives Verified 06/27/24 15:56 Penicillins Allergy Hives Verified 06/27/24 15:56 Review of Systems Review of Systems: CONSTITUTIONAL: Reports fever and chills. EYES: Denies visual changes, redness, or discharge. ENT: Reports sore throat, sinus congestion, nasal drainage, and bilateral ear pain CARDIOVASCULAR: Denies chest pain, palpitations, or edema. RESPIRATORY: Reports cough and pleuritic chest pain. GASTROINTESTINAL: Reports diarrhea. Denies abdominal pain, nausea, vomiting GENITOURINARY: Denies dysuria or hematuria. SKIN: Denies rash or itching. MUSCULOSKELETAL: Reports generalized body aches. NEUROLOGIC: Denies headache, numbness, dizziness, or weakness. PSYCHIATRIC: Denies anxiety or depression. [facility] Past Medical History Medical History No pertinent past medical history Surgical History Surgical History No pertinent past surgical history Family History Family History Mother Family history non-contributory Social History Social History Smoking status: Former smoker Alcohol intake: current Alcohol use details: occasional Substance use: current Substance use type: marijuana Last use: occasional Living arrangements: with family Gender identity (if verbalized by the patient): Female Spiritual care concerns: No Exam Narrative: GENERAL: Appears acutely ill but nontoxic HEAD: Normocephalic, atraumatic. EYES: PERRLA and EOMI. ENT: Nares clear, no rhinorrhea or epistaxis. Mucous membranes moist. Oropharynx without tonsillar hypertrophy exudate or other lesions. Bilateral ear canals are erythematous. Bilateral TMs pearly powell nonbulging NECK: Supple. No adenopathy or masses. No carotid bruits or JVD CHEST: Cough present on exam. Clear to auscultation. No respiratory distress. No wheezes rales or rhonchi HEART: Regular rate and rhythm. No murmur heard. Normal peripheral pulses. ABDOMEN: Soft, nontender, nondistended, normal active bowel sounds. EXTREMITIES: Normal range of motion. No edema. SKIN: Generalized pallor. Warm, dry, no rash. NEURO: No focal deficits. Alert and oriented x3. PSYCH: Normal mood and affect. Course Course Emergency Course: This is a 34-year-old female who presented for evaluation of sick symptoms. COVID and strep were negative. Influenza A positive. Will treat with Tamiflu. Increase hydration. Uhfs-pow-rmgrryq agents for symptom management. Follow up with primary provider. Go to the ER for worsening symptoms. Patient in agreement with plan of care. Level of Care: Express Care Visit Vital Signs Vital signs: Vital Signs Temperature 37.2 C 06/27/24 15:44 Pulse Rate 121 H 06/27/24 15:44 Respiratory Rate 20 06/27/24 15:44 Blood Pressure 135/85 06/27/24 15:44 Pulse Oximetry 98 06/27/24 15:44 Oxygen Delivery Room Air 06/27/24 15:44 Temperature 37.2 C 06/27/24 15:44 Pulse Rate 121 H 06/27/24 15:44 Respiratory Rate 20 06/27/24 15:44 Blood Pressure 135/85 06/27/24 15:44 Pulse Oximetry 98 06/27/24 15:44 Oxygen Delivery Room Air 06/27/24 15:44 Medical Decision Making Vital Signs Vital Signs: Vital Signs Temperature 37.2 C 06/27/24 15:44 Pulse Rate 121 H 06/27/24 15:44 Respiratory Rate 20 06/27/24 15:44 Blood Pressure 135/85 06/27/24 15:44 Pulse Oximetry 98 06/27/24 15:44 Oxygen Delivery Room Air 06/27/24 15:44 Temperature 37.2 C 06/27/24 15:44 Pulse Rate 121 H 06/27/24 15:44 Respiratory Rate 20 06/27/24 15:44 Blood Pressure 135/85 06/27/24 15:44 Pulse Oximetry 98 06/27/24 15:44 Oxygen Delivery Room Air 06/27/24 15:44 Lab Data Labs: Lab Results 06/27/24 Range/Units 16:05 POC Influenza A Ag Positive (Negative) POC Influenza B Ag Negative (Negative) POC SARS CoV-2 Ag Negative (Negative) POC Grp A Strep Screen Negative (Negative) Discharge Plan Discharge Clinical Impression: Influenza A Patient Disposition: Home, Self-Care Condition: Stable Instructions: Antibiotic Form, Influenza (ED) Patient Language: Kazakh Prescriptions: New oseltamivir [Tamiflu] 75 mg capsule 75 mg PO Q12H 5 Days Qty: 10 0RF Follow-up/Referrals: Dino Ye MD [Physician] - Stand Alone Forms: Work/School Release IP Time of Disposition: 16:07
== END 2024-06-27 16:10 | disposition home or self-care (01) ==
PROVIDERS: Emergency Provider Nurse Practitioner
DX: J10.1 Influenza due to other identified influenza virus with other respiratory manifestations (principal); Z20.822 Contact with and (suspected) exposure to COVID-19; Z87.891 Personal history of nicotine dependence
CPT/HCPCS: 87081; 87426; 87804; 87880; 99213; G0463

== ENCOUNTER 2025-02-25 18:53 | Emergency (ER) | payer OTHER, SELFPAY ==
[2025-02-25 18:57] VITALS: BP 156/92; PULSE 83; RESP 18; TEMP 36.4; O2SAT 99
--- OUTSIDE RECORDS SUMMARY | 2025-02-25 18:58 | XMS_ITS | Clinical Summary ---
Author Organization [facility] Address [address] [place] [address] Care Team Providers Care Machine Rigger Name Role Phone Luke Dasilva MD Primary Care Provider [phone] Gayle Pascual MD Unavailable [phone] Allergies Active Allergy Reactions Criticality Noted Date [...] testing twice weekly with primary OB at [facility]. Reports reassuring testing. Began care with [...] Recommendations: Labor warnings reviewed. The Covid vaccine ([employer] or [employer]) was recommended, discussing the safety in and [...] drink = 0.6 oz pur e alcohol) [facility] Utilities Answer Date Recorded In the past 12 months has th e [employer], gas, oil, or water [employer] threatened to shut off services in your home? No 04/08/2023 Social Connection and Isolation Panel Answer Date Recorded In a typical week, how many times do you talk on the phone with family, friends, or neighbors? More than three times a week 04/08/2023 How often do you get togethe r with friends or relatives? More than three times a week 04/08/2023 How often do you attend chur ch or anglican services? Never 04/08/2023 Do you belong to any clubs o r organizations such as mormonism groups, unions, fraternal or athletic groups, or [...] place to sleep or slept in a residential (including now)? No 04/08/2023 Personal Safety Answer Date Recorded Have you ever been in or are you currently in a harmful physical or emotional relationship or is someone making you feel afraid or unsafe? 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 Gender Identity Not on file Sexual Orientation [...] Livin g 8 9 CAREY ,GIRL MESERET Martin n, Austin whiteside MD Complications:None Delivery Location:This [facility] Last Filed [...] 5:06 PM CDT Height 160 cm (5' 3) 09/04/2023 5:06 PM CDT Body Mass Index 32.24 09/04/2023 5:06 PM CDT Plan of Treatment Health Maintenance Due Date Last Done Comments Cervical Cancer Screening 1990 Depression Screening 1990 Hepatitis C Screening 1990 Hepatitis B Screening 01/11/2008 Regular Well Visit/Exam 18-64 01/11/2008 Varicella Vaccines (1 of 2 - 13+ 2-dose series) 06/20/2014 HPV Vaccines (1 - 3-dose SCD M series) 2017 DTaP/Tdap/Td Vaccine (2 - Td or Tdap) 05/23/2024 05/23/2014 Influenza Vaccine (#1) 2024 Pneumococcal vaccine <65 Aged Out No longer eligible based on patient's age to complete this topic Insurance Advance Directives For more information, please contact: [phone] * Full Code (Latest Code Status on File) Date Activated Date Inactivated Comments 04/08/2023 1:45 PM 04/10/2023 1:26 PM * Full Code Date Activated Date Inactivated Comments 01/24/2021 5:26 AM 01/26/2021 1:29 AM * Full Code Date Activated Date Inactivated Comments 01/22/2021 6:35 AM 01/24/2021 5:25 AM Full CPR in case of cardiopulmonary arrest Care Teams Machine Rigger Relationship Specialty Start Date End Date Luke Dasilva MD PCP - General 06/09/18 Gayle Pascual MD [address] [place] [address] Area Operations Director Obstetrics and Gynecology 01/25/21
--- NOTE | 2025-02-25 19:05 | ED_ITS ---
HPI - Dental/Oral General Chief complaint: Dental/Oral Stated complaint: teeth /ear pain Time Seen by Provider: 02/25/25 19:05 Source: patient, RN notes reviewed and old records reviewed Mode of arrival: ambulatory Limitations: no limitations History of Present Illness HPI Narrative: 35 year old female presents to [facility] care with complaints of dental pain to the left side of her upper teeth #14 tooth since Friday. Patient was on antibiotic for dental abscess to right upper tooth recently which has healed. Patient reports that her jaw and left ear hurt also and she has some mild swelling to the lef side of mid cheek. Patient has not had any difficulty with her breathing or with swallowing. Patient has been taking Ibuprofen and Tylenol for her pain. Patient does have denitist that she sees for care. MD Complaint: tooth pain Location: Tooth # (14) Onset (ago): day(s) (4 days) Severity: severe Severity scale (1-10): 10 Treatment prior to arrival: oral analgesic Related Data Allergies Allergy/AdvReac Type Severity Reaction Status Date / Time ceftriaxone (From Rocephin) Allergy Hives Verified 02/25/25 18:55 Penicillins Allergy Hives Verified 02/25/25 18:55 Review of Systems Review of Systems: CONSTITUTIONAL: Denies fever, chills, or sweats. ENT: Denies rhinorrhea, congestion, sore throat, + left otalgia. and mild left cheek swelling. Reports dental pain to #14 tooth for the past 4 days with noted caries and prior filling noted to tooth, no gum swelling noted or signs of abscess. CARDIOVASCULAR: Denies chest pain, palpitations, or edema. RESPIRATORY: Denies cough or dyspnea. SKIN: Denies rash or itching. MUSCULOSKELETAL: Denies myalgia. NEUROLOGIC: Denies headache All systems reviewed & are unremarkable except as noted in HPI and below PMFSH Past Medical History Medical History (Updated 02/26/25 @ 00:01 by Shruti Vang) History of dental problems No pertinent past medical history Surgical History Surgical History (Updated 02/25/25 @ 19:17 by Zahira Martinez APRN) History of tonsillectomy and adenoidectomy History of cholecystectomy [place] teeth extracted Family History Family History Mother Family history non-contributory Social History Social History (Updated 02/27/25 @ 09:54 by Zahira Martinez APRN) Additional smoking assessment comments: reports no tobacco use Alcohol intake: current Alcohol use details: occasional Substance use: current Substance use type: marijuana Last use: occasional Living arrangements: with family Gender identity (if verbalized by the patient): Female Spiritual care concerns: No Comments At time of signature, agree with nursing past medical, surgical, social and family history. There is no relevant family history pertinent to the presenting complaint Exam Narrative: GENERAL: Well-appearing, well-nourished, and in some acute distress. HEAD: Normocephalic, atraumatic. EYES: PERRLA and EOMI. ENT: Nares clear, no rhinorrhea or epistaxis. Mucous membranes moist. TM's normal bilaterally with good light reflex, throat pink with no tonsils present, pain to #14 tooth with no obvious abscess noted has had previous filling to tooth, no redness or swelling of gum around tooth, mild left cheek swelling, no trismus or any Moses angina noted. NECK: Supple.no lymphadenopathy CHEST: Clear to auscultation. No respiratory distress.no cough noted SAO2 99% on room air HEART: Regular rate and rhythm. No murmur heard. Normal peripheral pulses. SKIN: Warm, dry, no rash. NEURO: No focal deficits. Alert and oriented x3. Course Course Emergency Course: Patient is aware of diagnosis, understands and agrees to treatment plan. Anticipatory guidance given. Patient agrees to follow-up as directed and is aware of reasons to seek care at the emergency department. Portions of this record may have been created with voice recognition software Level of Care: Express Care Visit Vital Signs Vital signs: Vital Signs Temperature 36.4 C 02/25/25 18:57 Pulse Rate 83 02/25/25 18:57 Respiratory Rate 18 02/25/25 18:57 Blood Pressure 156/92 H 02/25/25 18:57 Pulse Oximetry 99 02/25/25 18:57 Oxygen Delivery Room Air 02/25/25 18:57 Temperature 36.4 C 02/25/25 18:57 Pulse Rate 83 02/25/25 18:57 Respiratory Rate 18 02/25/25 18:57 Blood Pressure 156/92 H 02/25/25 18:57 Pulse Oximetry 99 02/25/25 18:57 Oxygen Delivery Room Air 02/25/25 18:57 Reviewed MDM - Dental/Oral MDM Narrative Medical decision making narrative: Patients pain and complaint coupled with physical findings are consistent with dentalgia. There are no focal signs of space occupying lesions that are compromising to the airway; no dysphagia, odynophagia, dysphonia, or dyspnea. No uvular deviation or soft palate edema. Patient is non-toxic appearing. The floor of the mouth is soft with no signs of Moses's Angina; no induration below mandible, no neck pain.? Patient is without trismus or drooling and able to swallow secretions.? Patient is felt appropriate for discharge home with dental follow up. Differential Diagnosis Differential diagnosis: Likely dental caries, toothache, dental abscess and other (left cheek swelling) Medical Records Attestation: I reviewed the patient's medical records. Critical Care Time Critical Care Time Critical Care Time: No Discharge Plan Discharge Clinical Impression: Dentalgia, Dental caries Patient Disposition: Home Condition: Stable Instructions: Antibiotic Form, Dental Abscess (ED), Toothache (ED) Additional Instructions: Avoid temperature extremes May apply heat or ice to the face Gentle brushing and flossing Antibiotic as directed Tylenol may take Tylenol 500 mg along with Ibuprofen no more than 4000 mg daily Use ibuprofen regularly take 6oomg no more that 4 times daily with food for pain every 6 hours Follow-up with the dentist as soon as possible--see the list provided If your symptoms persist, change or worsen significantly before you can contact your personal physician then please, without delay, go to the emergency department for further evaluation. Follow-up with PCP in 7-10 days or sooner if needed Follow up with PCP soon in regards to your blood pressure which is elevated above threshold for referral. Blood pressure above 120/80 may indicate pre- hypertension. 156/92 Patient Language: Spanish Prescriptions: New clindamycin HCl [Cleocin HCl] 300 mg capsule 300 mg PO TID Qty: 30 0RF ibuprofen 600 mg tablet 600 mg PO Q6H PRN (Reason: pain) Qty: 30 0RF Follow-up/Referrals: PHYSICIAN NOT ON STAFF,NONSTAFF [Primary Care Provider] Stand Alone Forms: Work/School Release IP Time of Disposition: 19:23 Quality Kiara Coma Scale Eyes: Open Verbal: Oriented and Alert Motor: Follows Commands [place]ack Coma Total Score: 15
== END 2025-02-25 19:32 | disposition home or self-care (01) ==
PROVIDERS: Emergency Provider Registered Nurse
DX: K08.89 Other specified disorders of teeth and supporting structures (principal); K02.9 Dental caries, unspecified; F12.90 Cannabis use, unspecified, uncomplicated
CPT/HCPCS: 99213; G0463